=== PATIENT | female | born 2000 | race Caucasian/White ===

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

== ENCOUNTER 2019-07-03 11:26 | Emergency (ER) | payer OTHER ==
[~2019-07-03] VITALS: Ht 165.1 cm; Wt 68.8 kg
[2019-07-03] MEDS ORDERED: ALBUTEROL SULFATE 2.5 MG/3 ML ONE (12:13)
[2019-07-03] MEDS ORDERED: ONDANSETRON ODT 4 MG ONE (12:14)
[2019-07-03] MEDS ORDERED: MAALOX/HYOSCYAMINE/LIDOCAINE 45 ML BTL ONE (12:14)
[2019-07-03] MEDS ORDERED: FAMOTIDINE 20 MG TABLET ONE (12:14)
--- NOTE | 2019-07-03 12:18 | NUR ---
RT AND LAB AT [facility]. PT C/O ABDOMINAL PAIN SINCE FEBRUARY WITH NAUSEA, COUGH SINCE APRIL, WEAKNESS, AND TACTILE FEVERS AT HOME. PT UP DATED ON POC. WILL MEDICATE ORDERED. UA SENT TO THE LAB.
[2019-07-03 12:29] LABS: BASOPHILS # (AUTO) 0.07 x10^3/uL (0-0.3); BASOPHILS % (AUTO) 1 % (0-1); EOSINOPHILS # (AUTO) 0.39 x10^3/uL (0-0.8); EOSINOPHILS % (AUTO) 5 % (1-7); LYMPHOCYTES # (AUTO) 1.32 x10^3/uL (1-6.1); LYMPHOCYTES % (AUTO) 16 % (22-44); MD NO; MEAN CORPUSCULAR HEMOGLOBIN 29.6 pg (27.0-34.8); MEAN CORPUSCULAR HGB CONC 32.8 g/dL (32.4-35.8); MEAN CORPUSCULAR VOLUME 90.2 fL (80-100); MEAN PLATELET VOLUME 7.5 fL (7.4-10.4); MONOCYTES % (AUTO) 5 % (2-9); NEUTROPHILS # (AUTO) 6.06 x10^3/uL (1.8-8.0); NEUTROPHILS % (AUTO) 74 % (42-75); PLATELET COUNT 215 x10^3/uL (130-400); RED BLOOD COUNT 4.74 x10^6/uL (3.82-5.3); RED CELL DISTRIBUTION WIDTH 13.2 % (9.6-15.2)
[2019-07-03] MEDS ORDERED: ONDANSETRON ODT 4 MG PO ONE (12:30)
[2019-07-03] MEDS ORDERED: MAALOX/HYOSCYAMINE/LIDOCAINE 45 ML BTL PO ONE (12:30)
[2019-07-03] MEDS ORDERED: ALBUTEROL/IPRATROPIUM 2.5MG/0.5MG, 3 ML NPPB ONE (12:30)
[2019-07-03] MEDS ORDERED: FAMOTIDINE 20 MG TABLET PO ONE (12:30)
--- NOTE | 2019-07-03 12:30 | NUR ---
PT REPORTS SHE FEELS BETTER AFTER BREATHING TX. PT TO RAD.
[2019-07-03 12:35] LABS: CULTURE INDICATED? YES; MICROSCOPIC INDICATED
[2019-07-03 12:39] LABS: ALANINE AMINOTRANSFERASE 28 U/L (12-78); ALBUMIN 3.5 g/dL (3.4-5.0); ANION GAP 6 mmol/L (5-15); CALCIUM 8.6 mg/dL (8.5-10.1); CHLORIDE 107 mmol/L (98-107)
[2019-07-03 12:44] LABS: ALKALINE PHOSPHATASE 58 U/L (45-117); BILIRUBIN,TOTAL 0.8 mg/dL (0.2-1.0); TOTAL PROTEIN 6.9 g/dL (6.4-8.2)
[2019-07-03] MEDS ORDERED: CEFTRIAXONE 1,000 MG IM ONE (13:30)
[2019-07-03] MEDS ORDERED: CEFTRIAXONE 1,000 MG ONE (13:46)
[2019-07-03] MEDS ORDERED: LIDOCAINE-MPF 1%, 5ML ONE (13:46)
[2019-07-03 14:20] VITALS: BP 108/62
[2019-07-31] MEDS ORDERED: LIOT5TAB10 PO ×2 (17:06)
== END 2019-07-03 14:22 | disposition home or self-care (01) ==
LOC: ED 12:13
DX: K29.50 Unspecified chronic gastritis without bleeding (principal); G89.29 Other chronic pain; N10 Acute pyelonephritis; J20.8 Acute bronchitis due to other specified organisms; N30.00 Acute cystitis without hematuria
CPT/HCPCS: 36415; 71046; 80053; 81001; 83690; 84703; 85025; 87086; 93005; 94640; 96372; 99284; J0696; J7620; Q0162

== ENCOUNTER 2019-07-29 09:37 | Inpatient (IN) | payer OTHER ==
[~2019-07-29] VITALS: Ht 165.1 cm; Wt 70.0 kg
--- NOTE | 2019-07-29 09:37 | NUR ---
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
[2019-07-29 10:23] LABS: BASOPHILS # (AUTO) 0.07 x10^3/uL (0-0.3); BASOPHILS % (AUTO) 1 % (0-1); EOSINOPHILS % (AUTO) 10 % (1-7); LYMPHOCYTES # (AUTO) 1.23 x10^3/uL (1-6.1); LYMPHOCYTES % (AUTO) 17 % (22-44); MD NO; MEAN CORPUSCULAR HGB CONC 32.8 g/dL (32.4-35.8); MEAN CORPUSCULAR VOLUME 88.6 fL (80-100); MEAN PLATELET VOLUME 7.6 fL (7.4-10.4); MONOCYTES # (AUTO) 0.35 x10^3/uL (0-1.4); MONOCYTES % (AUTO) 5 % (2-9); NEUTROPHILS # (AUTO) 4.82 x10^3/uL (1.8-8.0); NEUTROPHILS % (AUTO) 67 % (42-75); PLATELET COUNT 269 x10^3/uL (130-400); RED BLOOD COUNT 4.78 x10^6/uL (3.82-5.3); RED CELL DISTRIBUTION WIDTH 13.3 % (9.6-15.2)
[2019-07-29 10:32] LABS: ALANINE AMINOTRANSFERASE 26 U/L (12-78); ALBUMIN 3.4 g/dL (3.4-5.0); ANION GAP 4 mmol/L (5-15); CALCIUM 8.2 mg/dL (8.5-10.1); CHLORIDE 106 mmol/L (98-107)
[2019-07-29 10:36] LABS: ALKALINE PHOSPHATASE 61 U/L (45-117); BILIRUBIN,TOTAL 0.4 mg/dL (0.2-1.0); TOTAL PROTEIN 6.9 g/dL (6.4-8.2)
[2019-07-29 10:56] LABS: MICROSCOPIC AUTO
[2019-07-29 11:00] LABS: FREE T4 (FREE THYROXINE) 0.99 ng/dL (0.76-1.46)
[2019-07-29 11:04] LABS: CULTURE INDICATED? YES
--- NOTE | 2019-07-29 11:04 | NUR ---
PT UP RIGHT ON GURNEY AWAKE & MOSTLY COMFORTABLE, RESPONDS APPROP TO STAFF, NAD & REFUSES PAIN MEDS FOR C/O ZAMORA, COMFORT MEASURES PROVIDED, FAMILY AT BS, CALL LIGHT WITHIN REACH.
[2019-07-29 11:05] LABS: AMPHETAMINE SCREEN, URINE Negative (Negative); BARBITURATE SCREEN, URINE Negative (Negative); BENZODIAZEPINE SCREEN, URINE Negative (Negative); CANNABINOID SCREEN, URINE Positive (Negative); COCAINE SCREEN, URINE Negative (Negative); METHADONE SCREEN, URINE Negative (Negative); OPIATE SCREEN, URINE Negative (Negative)
[2019-07-29] MEDS ORDERED: CEFTRIAXONE PMX 1GM/50ML 50 ML ONE (11:20)
[2019-07-29] MEDS ORDERED: CEFTRIAXONE PMX 1GM/50ML 50 ML IV ONE (11:30)
--- NOTE | 2019-07-29 11:58 | NUR ---
PT REMAINS UPRIGHT ON GURNEY AWAKE & COMFORTABLE, RESPONDS APPROP TO STAFF, NAD, COMFORT MEASURES PROVIDED, FAMILY AT BS, CALL LIGHT WITHIN REACH.
[2019-07-29] MEDS ORDERED: ACETAMINOPHEN 325 MG TABLET PO PRN (12:30)
[2019-07-29] MEDS ORDERED: GABAPENTIN 300 MG CAPSULE PO PRN (12:30)
[2019-07-29] MEDS ORDERED: KETOROLAC 30 MG/1 ML IV PRN (12:30)
[2019-07-29] MEDS ORDERED: hydrALAzine 20 MG/ML, 1ML IVPush PRN (12:30)
[2019-07-29] MEDS ORDERED: ONDANSETRON ODT 4 MG PO PRN (12:30)
[2019-07-29] MEDS ORDERED: BACLOFEN 10 MG TABLET PO PRN (12:30)
[2019-07-29] MEDS ORDERED: SODIUM CHLORIDE 0.9% 1,000ML IVBOLUS ONE (12:30)
[2019-07-29] MEDS ORDERED: KETOROLAC 30 MG/1 ML IM PRN (12:30)
[2019-07-29] MEDS ORDERED: IBUPROFEN 600 MG TABLET PO PRN (12:30)
[2019-07-29] MEDS ORDERED: ONDANSETRON 2MG/ML, 2ML IVPush PRN (12:30)
[2019-07-29] MEDS ORDERED: SUMATRIPTAN 25 MG TABLET PO PRN (12:30)
--- NOTE | 2019-07-29 12:45 | NUR ---
BREAK NOTE FOR RN: PER PRIMARY RN ATTEMPT X1 TO CALL FOR REPORT, WHICH WAS REFUSED. THROUGHPUT RN AWARE. FAMILY AT BEDSIDE. NAD NOTED AT THIS TIME.
--- NOTE | 2019-07-29 12:55 | NUR ---
BREAK NOTE: SECOND ATTEMPT FOR REPORT.
[2019-07-29 13:44] VITALS: BP 101/60
[2019-07-29 14:45] VITALS: BP 89/48
[2019-07-29] MEDS: NS + 20MEQ KCL 1,000 ML IV SCH (15:44)
[2019-07-29 15:55] VITALS: BP 101/60
[2019-07-29 16:56] VITALS: BP 108/66
[2019-07-29] MEDS: BUTALB/APAP/CAFFEINE 50MG/325MG/40MG PO PRN ×2 (17:00→22:16)
[2019-07-29] MEDS: ENOXAPARIN 40 MG/0.4 ML SQ SCH (18:00)
[2019-07-29 19:19] VITALS: BP 97/57
[2019-07-29 22:19] VITALS: BP 110/70
[2019-07-30] MEDS ORDERED: LEVETIRACETAM 1,000 MG in SODIUM CHLORIDE 0.9% 100 ML IV ONE ×2 (01:30→09:00)
[2019-07-30 01:50] VITALS: BP 96/60
[2019-07-30] MEDS: NS + 20MEQ KCL 1,000 ML IV SCH ×3 (02:09→20:23)
[2019-07-30] MEDS: BUTALB/APAP/CAFFEINE 50MG/325MG/40MG PO PRN (02:30)
[2019-07-30 06:37] LABS: ANION GAP 5 mmol/L (5-15); CALCIUM 8.1 mg/dL (8.5-10.1); CHLORIDE 110 mmol/L (98-107); CREATININE 0.63 mg/dL (0.55-1.02)
[2019-07-30 06:45] LABS: BASOPHILS # (AUTO) 0.03 x10^3/uL (0-0.3); BASOPHILS % (AUTO) 1 % (0-1); EOSINOPHILS # (AUTO) 0.42 x10^3/uL (0-0.8); EOSINOPHILS % (AUTO) 7 % (1-7); LYMPHOCYTES # (AUTO) 1.59 x10^3/uL (1-6.1); LYMPHOCYTES % (AUTO) 27 % (22-44); MD NO; MEAN CORPUSCULAR VOLUME 87.9 fL (80-100); MEAN PLATELET VOLUME 7.5 fL (7.4-10.4); MONOCYTES # (AUTO) 0.41 x10^3/uL (0-1.4); MONOCYTES % (AUTO) 7 % (2-9); NEUTROPHILS # (AUTO) 3.45 x10^3/uL (1.8-8.0); NEUTROPHILS % (AUTO) 59 % (42-75); PLATELET COUNT 200 x10^3/uL (130-400); RED BLOOD COUNT 4.09 x10^6/uL (3.82-5.3); RED CELL DISTRIBUTION WIDTH 13.1 % (9.6-15.2)
[2019-07-30 08:56] VITALS: BP 99/62
[2019-07-30 12:18] VITALS: BP 100/64
[2019-07-30] MEDS ORDERED: LORazepam 2 MG/ML, 1ML IVPush PRN (12:30)
[2019-07-30] MEDS: CEFTRIAXONE PMX 1GM/50ML 50 ML IV SCH (13:53)
[2019-07-30] MEDS ORDERED: GADOTERATE 7.5 MMOL/15 ML SYR ONE (17:26)
[2019-07-30] MEDS: ENOXAPARIN 40 MG/0.4 ML SQ SCH (17:40)
[2019-07-30 20:12] VITALS: BP 111/61
[2019-07-30 20:18] VITALS: BP 114/76
[2019-07-30 20:19] VITALS: BP 114/77
[2019-07-31 00:43] VITALS: BP 96/54
[2019-07-31 06:01] LABS: BASOPHILS # (AUTO) 0.03 x10^3/uL (0-0.3); BASOPHILS % (AUTO) 1 % (0-1); EOSINOPHILS # (AUTO) 0.43 x10^3/uL (0-0.8); EOSINOPHILS % (AUTO) 9 % (1-7); LYMPHOCYTES # (AUTO) 1.94 x10^3/uL (1-6.1); LYMPHOCYTES % (AUTO) 41 % (22-44); MD NO; MEAN CORPUSCULAR VOLUME 87.8 fL (80-100); MONOCYTES # (AUTO) 0.33 x10^3/uL (0-1.4); MONOCYTES % (AUTO) 7 % (2-9); NEUTROPHILS # (AUTO) 1.95 x10^3/uL (1.8-8.0); NEUTROPHILS % (AUTO) 42 % (42-75); PLATELET COUNT 204 x10^3/uL (130-400); RED BLOOD COUNT 4.22 x10^6/uL (3.82-5.3); RED CELL DISTRIBUTION WIDTH 13.2 % (9.6-15.2)
[2019-07-31 06:07] LABS: ANION GAP 5 mmol/L (5-15); CALCIUM 8.5 mg/dL (8.5-10.1); CHLORIDE 112 mmol/L (98-107)
[2019-07-31] MEDS: NS + 20MEQ KCL 1,000 ML IV SCH (06:09)
[2019-07-31 06:10] LABS: CREATININE 0.69 mg/dL (0.55-1.02)
[2019-07-31] MEDS ORDERED: LEVETIRACETAM 500 MG TABLET PO SCH (09:30)
[2019-07-31] MEDS ORDERED: LIOTHYRONINE 5 MCG TABLET PO SCH (11:00)
[2019-07-31] MEDS: CEFTRIAXONE PMX 1GM/50ML 50 ML IV SCH (14:16)
[2019-07-31] MEDS ORDERED: SODIUM CHLORIDE 0.9% 1,000 ML IV SCH (16:00)
[2019-07-31] MEDS: ENOXAPARIN 40 MG/0.4 ML SQ SCH (17:03)
[2019-07-31] MEDS ORDERED: CEFD300C37 PO (17:06)
[2019-07-31] MEDS ORDERED: LIOT5TAB10 PO (17:06)
[2019-07-31] MEDS ORDERED: HYDR20TA PO (17:06)
[2019-07-31] MEDS ORDERED: LEVE500T53 PO (17:06)
[2019-07-31] MEDS ORDERED: HYDR10TA PO (17:06)
[2019-07-31] MEDS ORDERED: FAMO20TA7 PO (17:06)
[2019-07-31 17:34] VITALS: BP 103/69
[2019-07-31] MEDS ORDERED: IBUPROFEN 600 MG TABLET PO PRN (20:00)
[2019-07-31] MEDS ORDERED: HYDROCORTISONE 10 MG TABLET PO SCH (21:00)
[2019-07-31] MEDS ORDERED: FAMOTIDINE 20 MG TABLET PO SCH (21:00)
[2019-08-01] MEDS ORDERED: HYDROCORTISONE 20 MG TABLET PO SCH (07:30)
[2019-08-01] MEDS ORDERED: CEFTRIAXONE PMX 1GM/50ML 50 ML IV SCH (14:00)
[2019-08-03] MEDS ORDERED: NS + 20MEQ KCL 1,000 ML IV SCH (15:32)
[2019-08-03] MEDS ORDERED: ACETAMINOPHEN 325 MG TABLET PO PRN (16:00)
[2019-08-03] MEDS ORDERED: MORPHINE SULFATE 4 MG/ML, 1ML IVPush PRN (16:00)
[2019-08-03] MEDS ORDERED: hydrALAzine 20 MG/ML, 1ML IVPush PRN (16:00)
[2019-08-03] MEDS ORDERED: ONDANSETRON ODT 4 MG PO PRN (16:00)
[2019-08-03] MEDS ORDERED: ONDANSETRON 2MG/ML, 2ML IVPush PRN (16:00)
[2019-08-03] MEDS ORDERED: KETOROLAC 30 MG/1 ML IM PRN (16:00)
[2019-08-03] MEDS ORDERED: KETOROLAC 30 MG/1 ML IV PRN (16:00)
[2019-08-03] MEDS ORDERED: IBUPROFEN 600 MG TABLET PO PRN (16:00)
[2019-08-03] MEDS ORDERED: LEVETIRACETAM 500 MG TABLET PO SCH (21:00)
== END 2019-07-31 20:00 | disposition home or self-care (01) | DRG 71 ==
LOC: ED 11:08 → EDIP 12:26 → 4EST 13:19
PROVIDERS: ADMIT Hospitalist; ATTEND Hospitalist
DX: G93.89 Other specified disorders of brain (principal); E27.40 Unspecified adrenocortical insufficiency; N39.0 Urinary tract infection, site not specified; G40.909 Epilepsy, unspecified, not intractable, without status epilepticus; B96.20 Unspecified Escherichia coli [E. coli] as the cause of diseases classified elsewhere; E03.9 Hypothyroidism, unspecified; F12.90 Cannabis use, unspecified, uncomplicated; F41.9 Anxiety disorder, unspecified; G89.29 Other chronic pain; R32 Unspecified urinary incontinence; Z87.820 Personal history of traumatic brain injury; G43.909 Migraine, unspecified, not intractable, without status migrainosus; K29.50 Unspecified chronic gastritis without bleeding; Z79.899 Other long term (current) drug therapy
CPT/HCPCS: 36415; 70450; 70544; 70553; 80048; 80053; 80307; 81001; 82533; 83735; 84439; 84443; 84481; 84703; 85025; 87077; 87086; 87186; 93005; 93306; 95819; 96365; G0378; J0696; J3480; Q0162; A9575; J7030

== ENCOUNTER 2019-08-03 12:40 | Observation (INO) | payer OTHER ==
[~2019-08-03] VITALS: Ht 165.1 cm; Wt 73.4 kg
[~2019-08-03 12:40] MED LIST: CEFD300C37 PO; FAMO20TA7 PO; HYDR10TA PO; HYDR20TA PO; LEVE500T53 PO; LIOT5TAB10 PO
[2019-08-03 13:20] LABS: BASOPHILS # (AUTO) 0.03 x10^3/uL (0-0.3); BASOPHILS % (AUTO) 0 % (0-1); EOSINOPHILS # (AUTO) 0.05 x10^3/uL (0-0.8); EOSINOPHILS % (AUTO) 1 % (1-7); LYMPHOCYTES # (AUTO) 1.16 x10^3/uL (1-6.1); LYMPHOCYTES % (AUTO) 14 % (22-44); MD NO; MEAN PLATELET VOLUME 7.7 fL (7.4-10.4); MONOCYTES # (AUTO) 0.31 x10^3/uL (0-1.4); MONOCYTES % (AUTO) 4 % (2-9); NEUTROPHILS # (AUTO) 6.53 x10^3/uL (1.8-8.0); NEUTROPHILS % (AUTO) 81 % (42-75); PLATELET COUNT 342 x10^3/uL (130-400); RED BLOOD COUNT 5.48 x10^6/uL (3.82-5.3); RED CELL DISTRIBUTION WIDTH 13.4 % (9.6-15.2)
[2019-08-03 13:21] LABS: ALBUMIN 4.2 g/dL (3.4-5.0); ANION GAP 6 mmol/L (5-15); CALCIUM 9.1 mg/dL (8.5-10.1); CHLORIDE 105 mmol/L (98-107); CREATININE 0.96 mg/dL (0.55-1.02)
--- NOTE | 2019-08-03 13:53 | NUR ---
nax1
--- NOTE | 2019-08-03 13:54 | NUR ---
pt ambulates well to ED room from lobby.
--- NOTE | 2019-08-03 14:08 | NUR ---
first contact with pt. pt c/o rash behind neck and back, swollen lips. recently started new medications. recently admitted for sz and uti. still having uti s/s (pain, burning) after completed abx. pt's aox4. resps even and unlabored. bp/spo2 monitors in place. call light within reach.
[2019-08-03] MEDS ORDERED: DIPHENHYDRAMINE 25 MG CAPSULE ONE (14:19)
--- NOTE | 2019-08-03 14:20 | NUR ---
pt medicated per emar. pt tolerated well.
[2019-08-03 14:22] LABS: MICROSCOPIC INDICATED
[2019-08-03] MEDS ORDERED: DIPHENHYDRAMINE 25 MG CAPSULE PO ONE (14:30)
[2019-08-03 14:52] LABS: HCG UR SG 1.009 (1.003-1.030)
[2019-08-03 15:00] LABS: CULTURE INDICATED? YES
[2019-08-03] MEDS ORDERED: EPINEPHRINE 1 MG/ML, 1ML SQ ONE (15:30)
[2019-08-03] MEDS ORDERED: DIPHENHYDRAMINE 50 MG CAPSULE PO PRN (15:30)
[2019-08-03] MEDS ORDERED: methylPREDNISolone SOD SUCC 40 MG/ML IV ONE (15:30)
[2019-08-03] MEDS ORDERED: CALCIUM CARBONATE 500 MG TAB.CHEW PO PRN (15:30)
[2019-08-03] MEDS ORDERED: methylPREDNISolone SOD SUCC 40 MG/ML ONE (15:36)
[2019-08-03] MEDS ORDERED: EPINEPHRINE 1 MG/ML, 1ML ONE (15:36)
--- NOTE | 2019-08-03 15:52 | NUR ---
pt medicated per emar. pt tolerated well.
[2019-08-03] MEDS ORDERED: ACETAMINOPHEN 325 MG TABLET PO PRN ×2 (16:00)
[2019-08-03] MEDS ORDERED: MORPHINE SULFATE 4 MG/ML, 1ML IVPush PRN (16:00)
[2019-08-03] MEDS ORDERED: ONDANSETRON 2MG/ML, 2ML IVPush PRN ×2 (16:00)
[2019-08-03] MEDS ORDERED: morphine SULFATE 10 MG/ML, 1ML IVPush PRN (16:00)
[2019-08-03] MEDS ORDERED: hydrALAzine 20 MG/ML, 1ML IVPush PRN ×2 (16:00)
[2019-08-03] MEDS ORDERED: KETOROLAC 30 MG/1 ML IV PRN ×2 (16:00)
[2019-08-03] MEDS ORDERED: IBUPROFEN 600 MG TABLET PO PRN ×2 (16:00)
[2019-08-03] MEDS ORDERED: PROMETHAZINE 25 MG/ML, 1ML IM PRN (16:00)
[2019-08-03] MEDS ORDERED: ONDANSETRON ODT 4 MG PO PRN ×2 (16:00)
[2019-08-03] MEDS ORDERED: OXYcodone IR 5MG TABLET PO PRN (16:00)
--- NOTE | 2019-08-03 16:14 | NUR ---
REPORT GIVEN TO STONE PLASCENCIA. ALL QUESTIONS ANSWERED.
[2019-08-03] MEDS: NS + 20MEQ KCL 1,000 ML IV SCH (18:46)
[2019-08-03 18:57] VITALS: BP 99/61
[2019-08-03] MEDS: LEVETIRACETAM 500 MG TABLET PO SCH (21:39)
[2019-08-03] MEDS: methylPREDNISolone SOD SUCC 40 MG/ML IV SCH (21:40)
[2019-08-04 00:56] VITALS: BP 107/65
[2019-08-04] MEDS: NS + 20MEQ KCL 1,000 ML IV SCH ×2 (01:51→11:51)
[2019-08-04] MEDS: methylPREDNISolone SOD SUCC 40 MG/ML IV SCH (04:00)
[2019-08-04] MEDS ORDERED: LEVOTHYROXINE 100 MCG TABLET PO SCH (06:00)
[2019-08-04 08:15] VITALS: BP 119/88
[2019-08-04] MEDS: LEVETIRACETAM 500 MG TABLET PO SCH ×3 (09:00→20:26)
[2019-08-04] MEDS: HYDROCORTISONE 20 MG TABLET PO SCH (10:59)
[2019-08-04] MEDS ORDERED: LEVE500T53 PO (11:21)
[2019-08-04] MEDS ORDERED: EPINEPHRINE 1 MG/ML, 1ML SQ PRN (11:30)
[2019-08-04 12:50] VITALS: BP 107/68
[2019-08-04 19:27] VITALS: BP 102/62
[2019-08-04] MEDS ORDERED: HYDROCORTISONE 10 MG TABLET PO SCH (21:00)
[2019-08-05 00:52] VITALS: BP 116/68
[2019-08-05 05:34] LABS: ALBUMIN 3.5 g/dL (3.4-5.0); ANION GAP 5 mmol/L (5-15); CALCIUM 8.6 mg/dL (8.5-10.1); CHLORIDE 109 mmol/L (98-107)
[2019-08-05 05:35] LABS: CREATININE 0.74 mg/dL (0.55-1.02)
[2019-08-05 05:40] LABS: BASOPHILS # (AUTO) 0.02 x10^3/uL (0-0.3); BASOPHILS % (AUTO) 0 % (0-1); EOSINOPHILS # (AUTO) 0.09 x10^3/uL (0-0.8); EOSINOPHILS % (AUTO) 1 % (1-7); LYMPHOCYTES # (AUTO) 2.51 x10^3/uL (1-6.1); LYMPHOCYTES % (AUTO) 35 % (22-44); MD NO; MEAN CORPUSCULAR HEMOGLOBIN 29.2 pg (27.0-34.8); MEAN CORPUSCULAR HGB CONC 33.3 g/dL (32.4-35.8); MEAN CORPUSCULAR VOLUME 87.6 fL (80-100); MEAN PLATELET VOLUME 8.2 fL (7.4-10.4); MONOCYTES # (AUTO) 0.44 x10^3/uL (0-1.4); MONOCYTES % (AUTO) 6 % (2-9); NEUTROPHILS # (AUTO) 4.14 x10^3/uL (1.8-8.0); NEUTROPHILS % (AUTO) 58 % (42-75); PLATELET COUNT 262 x10^3/uL (130-400); RED BLOOD COUNT 4.88 x10^6/uL (3.82-5.3)
[2019-08-05] MEDS ORDERED: LEVOTHYROXINE 50 MCG TABLET PO SCH (06:00)
[2019-08-05 07:14] VITALS: BP 106/71
[2019-08-05] MEDS: HYDROCORTISONE 20 MG TABLET PO SCH (08:23)
[2019-08-05] MEDS: LEVETIRACETAM 500 MG TABLET PO SCH (08:23)
[2019-08-05 12:25] VITALS: BP 104/68
[2019-08-05] MEDS ORDERED: LEVO25TA4 PO (13:05)
[2019-08-05] MEDS ORDERED: EPIN0.3P3 SC (16:13)
== END 2019-08-05 16:18 | disposition home or self-care (01) ==
LOC: ED 14:36 → EDIP 15:13 → INTOOBSV 15:13 → 3N 16:39 → DCLOUNGE 08-05 16:09
PROVIDERS: ADMIT Internal Medicine; ATTEND Internal Medicine
DX: R21 Rash and other nonspecific skin eruption (principal); L25.8 Unspecified contact dermatitis due to other agents; T38.1X5A Adverse effect of thyroid hormones and substitutes, initial encounter; G40.909 Epilepsy, unspecified, not intractable, without status epilepticus; E03.9 Hypothyroidism, unspecified; G89.29 Other chronic pain; R10.9 Unspecified abdominal pain; Y92.89 Other specified places as the place of occurrence of the external cause
CPT/HCPCS: 36415; 80048; 81001; 81025; 82024; 82040; 84703; 85025; 87086; 96372; 96374; 96376; 99284; G0378; J0171; J2920; J3480; Q0163; 90472

== ENCOUNTER → 2019-09-22 | Outpatient (CLI) | payer OTHER ==
[~2019-09-22] MED LIST changes: +EPIN0.3P3 SC; +LEVO25TA4 PO
== END | disposition home or self-care (01) ==
LOC: CFH 09:09
PROVIDERS: ATTEND Obstetrics & Gynecology
DX: N63.24 Unspecified lump in the left breast, lower inner quadrant (principal); N64.4 Mastodynia
CPT/HCPCS: 76642

== ENCOUNTER 2019-10-22 02:16 | Emergency (ER) | payer OTHER ==
[~2019-10-22] VITALS: Ht 172.7 cm; Wt 79.0 kg
[2019-10-22] MEDS ORDERED: LORazepam 1MG TABLET PO ONE (03:00)
[2019-10-22] MEDS ORDERED: LORazepam 1MG TABLET ONE (03:08)
--- NOTE | 2019-10-22 03:12 | NUR ---
INITIAL CONTACT WITH PT. ASSESSMENT DONE. PT HAS BEEN SEEN BY PROVIDER AND LABS HAVE BEEN DRAWN.
[2019-10-22 03:15] LABS: BASOPHILS # (AUTO) 0.04 x10^3/uL (0-0.3); BASOPHILS % (AUTO) 0 % (0-1); EOSINOPHILS # (AUTO) 0.14 x10^3/uL (0-0.8); EOSINOPHILS % (AUTO) 2 % (1-7); LYMPHOCYTES % (AUTO) 29 % (22-44); MD NO; MEAN CORPUSCULAR HEMOGLOBIN 29.5 pg (27.0-34.8); MEAN CORPUSCULAR HGB CONC 33.4 g/dL (32.4-35.8); MEAN CORPUSCULAR VOLUME 88.2 fL (80-100); MEAN PLATELET VOLUME 7.6 fL (7.4-10.4); MONOCYTES # (AUTO) 0.57 x10^3/uL (0-1.4); MONOCYTES % (AUTO) 7 % (2-9); NEUTROPHILS # (AUTO) 4.99 x10^3/uL (1.8-8.0); NEUTROPHILS % (AUTO) 62 % (42-75); PLATELET COUNT 270 x10^3/uL (130-400); RED CELL DISTRIBUTION WIDTH 13.8 % (9.6-15.2)
[2019-10-22 03:24] LABS: ALANINE AMINOTRANSFERASE 26 U/L (12-78); ALBUMIN 3.4 g/dL (3.4-5.0); ANION GAP 7 mmol/L (5-15); CHLORIDE 107 mmol/L (98-107)
[2019-10-22 03:30] LABS: ALKALINE PHOSPHATASE 52 U/L (45-117); BILIRUBIN,TOTAL 0.3 mg/dL (0.2-1.0); CREATININE 0.87 mg/dL (0.55-1.02); TOTAL PROTEIN 6.8 g/dL (6.4-8.2)
--- NOTE | 2019-10-22 04:08 | NUR ---
Sonal lofton in [facility] - 10/22/19 at 0409 by JARAD PT DC'D HOME WITH UNDERSTANDING OF INSTRUCTIONS.
[2019-10-22 04:10] VITALS: BP 108/51
--- NOTE | 2019-10-22 04:10 | NUR ---
PT DC'D HOME WITH UNDERSTANDING OF INSTRUCTIONS. PT HONEY WITHOUT DIFFICULTY.
== END 2019-10-22 04:12 | disposition home or self-care (01) ==
LOC: ED 04:02
DX: F41.1 Generalized anxiety disorder (principal); R25.1 Tremor, unspecified
CPT/HCPCS: 36415; 80053; 82607; 83735; 84443; 84703; 85025; 99283

== ENCOUNTER 2019-12-03 18:22 | Emergency (ER) | payer OTHER ==
[~2019-12-03] VITALS: Ht 165.1 cm; Wt 77.0 kg
[2019-12-03] MEDS ORDERED: HYDR-3059 PO (19:04)
--- NOTE | 2019-12-03 19:06 | NUR ---
PT AMBULATED TO RESTROOM WITH STEADY GAIT TO PROVIDE URINE SAMPLE. UA COLLECTED AND TAKEN TO LAB. PT RESTING ON GURNEY WATCHING TV. AWAITING FURTHER ORDERS AT THIS TIME.
[2019-12-03 19:28] LABS: MICROSCOPIC AUTO
--- NOTE | 2019-12-03 19:34 | NUR ---
AT BEDSIDE FOR ASSESSMENT.
[2019-12-03 19:46] LABS: CULTURE INDICATED? NO
--- NOTE | 2019-12-03 19:59 | NUR ---
PIV PLACED, LABS DRAWN. PT RESTING COMFORTABLY ON GURNEY. MOM AT BEDSIDE.
[2019-12-03] MEDS ORDERED: SODIUM CHLORIDE FLUSH 10ML SYR IVF ONE (20:00)
[2019-12-03 20:29] LABS: ALBUMIN 3.6 g/dL (3.4-5.0); ANION GAP 6 mmol/L (5-15); CALCIUM 8.7 mg/dL (8.5-10.1); CHLORIDE 110 mmol/L (98-107)
[2019-12-03 20:32] LABS: BASOPHILS # (AUTO) 0.03 x10^3/uL (0-0.3); BASOPHILS % (AUTO) 1 % (0-1); EOSINOPHILS % (AUTO) 2 % (1-7); LYMPHOCYTES # (AUTO) 2.04 x10^3/uL (1-6.1); LYMPHOCYTES % (AUTO) 32 % (22-44); MD NO; MEAN CORPUSCULAR HGB CONC 33.5 g/dL (32.4-35.8); MEAN CORPUSCULAR VOLUME 89.7 fL (80-100); MEAN PLATELET VOLUME 8.3 fL (7.4-10.4); MONOCYTES # (AUTO) 0.42 x10^3/uL (0-1.4); MONOCYTES % (AUTO) 7 % (2-9); NEUTROPHILS # (AUTO) 3.79 x10^3/uL (1.8-8.0); NEUTROPHILS % (AUTO) 59 % (42-75); PLATELET COUNT 255 x10^3/uL (130-400); RED BLOOD COUNT 4.85 x10^6/uL (3.82-5.3); RED CELL DISTRIBUTION WIDTH 13.5 % (9.6-15.2)
--- NOTE | 2019-12-03 20:32 | NUR ---
CT PENDING BETA.
[2019-12-03 20:35] LABS: ALANINE AMINOTRANSFERASE 24 U/L (12-78); ALKALINE PHOSPHATASE 61 U/L (45-117); BILIRUBIN,TOTAL 0.4 mg/dL (0.2-1.0); CREATININE 0.78 mg/dL (0.55-1.02); TOTAL PROTEIN 7.3 g/dL (6.4-8.2)
--- NOTE | 2019-12-03 20:49 | NUR ---
PT GOING TO CT
[2019-12-03] MEDS ORDERED: HYDROCORTISONE 10 MG TABLET PO ONE (21:00)
[2019-12-03] MEDS ORDERED: OMNIPAQUE 350 MG/ML, 100ML BOTTLE ONE (21:00)
--- NOTE | 2019-12-03 21:03 | NUR ---
PT REQUESTED HOME MED OF MD BLADIMIR NOTIFIED. MED RECEIVED FROM PHARMACY. 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 PT RESTING ON GURNEY. MOM AT BEDSIDE.
[2019-12-03 21:04] VITALS: BP 105/54
--- NOTE | 2019-12-03 21:14 | NUR ---
ALL RESULTS ARE BACK AT THIS TIME. CHART UP FOR RECHECK.
--- NOTE | 2019-12-03 21:16 | NUR ---
MD AT BEDSIDE TO UPDATE PT ON POC.
== END 2019-12-03 21:44 | disposition home or self-care (01) ==
LOC: ED 21:09
DX: N92.4 Excessive bleeding in the premenopausal period (principal); R10.11 Right upper quadrant pain
CPT/HCPCS: 36415; 74177; 80053; 81001; 83690; 84703; 85025; 99285; Q9967

== ENCOUNTER 2020-01-27 12:09 | Emergency (ER) | payer OTHER ==
[~2020-01-27] VITALS: Ht 165.1 cm; Wt 89.7 kg
[~2020-01-27 12:09] MED LIST changes: +HYDR-3590 PO
--- NOTE | 2020-01-27 12:58 | NUR ---
PT AMBULATED BACK TO ROOM WITHOUT DIFFICULTY.
--- NOTE | 2020-01-27 13:04 | NUR ---
JT NOVAK AT .
--- NOTE | 2020-01-27 13:16 | NUR ---
PT AMBULATED TO BR; INSTRUCTED ON CLEAN CATCH URINE SAMPLE.
[2020-01-27] MEDS ORDERED: PROCHLORPERAZINE 5 MG/ML, 2ML IVPush ONE (13:30)
[2020-01-27] MEDS ORDERED: DIPHENHYDRAMINE 50 MG/ML, 1ML IVPush ONE (13:30)
[2020-01-27] MEDS ORDERED: KETOROLAC 30 MG/1 ML IVPush ONE (13:30)
[2020-01-27] MEDS ORDERED: SODIUM CHLORIDE 0.9% 1,000ML IVBOLUS ONE (13:30)
[2020-01-27] MEDS ORDERED: SODIUM CHLORIDE FLUSH 10ML SYR IVF ONE (13:30)
--- NOTE | 2020-01-27 13:36 | NUR ---
IV INSERTED. ERP WAS IN TO REVIEW POC WITH PT. REPORTED TO KRISTEN PLASCENCIA. SPO2 WAS 88% ON RA. PT PLACED ON 2L O2 NC. PT STATES THERE WAS SOMEONE AT HER WORK ([employer]) WHOSE FAMILY WAS COVID+, BUT "HE HASN'T WORKED IN 2 WEEKS".
[2020-01-27] MEDS ORDERED: DIPHENHYDRAMINE 50 MG/ML, 1ML ONE (13:38)
[2020-01-27] MEDS ORDERED: PROCHLORPERAZINE 5 MG/ML, 2ML ONE (13:38)
[2020-01-27] MEDS ORDERED: KETOROLAC 30 MG/1 ML ONE (13:39)
[2020-01-27 13:40] LABS: BASOPHILS # (AUTO) 0.02 x10^3/uL (0-0.3); BASOPHILS % (AUTO) 0 % (0-1); EOSINOPHILS # (AUTO) 0.04 x10^3/uL (0-0.8); EOSINOPHILS % (AUTO) 1 % (1-7); LYMPHOCYTES # (AUTO) 1.22 x10^3/uL (1-6.1); LYMPHOCYTES % (AUTO) 30 % (22-44); MD NO; MEAN CORPUSCULAR HEMOGLOBIN 29.8 pg (27.0-34.8); MEAN CORPUSCULAR HGB CONC 33.6 g/dL (32.4-35.8); MEAN CORPUSCULAR VOLUME 88.6 fL (80-100); MONOCYTES # (AUTO) 0.28 x10^3/uL (0-1.4); MONOCYTES % (AUTO) 7 % (2-9); NEUTROPHILS # (AUTO) 2.52 x10^3/uL (1.8-8.0); NEUTROPHILS % (AUTO) 62 % (42-75); PLATELET COUNT 210 x10^3/uL (130-400); RED BLOOD COUNT 4.75 x10^6/uL (3.82-5.3); RED CELL DISTRIBUTION WIDTH 12.9 % (9.6-15.2)
[2020-01-27 13:45] LABS: MICROSCOPIC NOT IND
--- NOTE | 2020-01-27 13:46 | NUR ---
PT MEDICATED PER EMAR. NS INFUSING AT THIS TIME. US AT BEDSIDE AT THIS TIME.
[2020-01-27 13:52] LABS: ALBUMIN 3.5 g/dL (3.4-5.0); ANION GAP 3 mmol/L (5-15); CALCIUM 8.8 mg/dL (8.5-10.1); CHLORIDE 112 mmol/L (98-107)
[2020-01-27 13:59] LABS: ALANINE AMINOTRANSFERASE 27 U/L (12-78); ALKALINE PHOSPHATASE 57 U/L (45-117); BILIRUBIN,TOTAL 0.6 mg/dL (0.2-1.0); CREATININE 0.81 mg/dL (0.55-1.02)
[2020-01-27 14:25] VITALS: BP 95/59
--- NOTE | 2020-01-27 14:29 | NUR ---
PT STATES SHE FEELS BETTER AFTER MEDS AND FEELS READY TO BE DISCHARGED. ENCOURAGED PLENTY OF FLUIDS. D/C INSTRUCTIONS, MEDS & F/U APPT RV'WD WITH PT, SHE VERBALIZES UNDERSTANDING. RX GIVEN X1. AMBULATED OUT OF ED WITH MOTHER, WHO WILL TAKE HER HOME. Addendum: 01/27/20 at 1433 by OTTO INSTRUCTED PT TO RETURN TO ED FOR ANY WORSENING SYMPTOMS.
== END 2020-01-27 14:33 | disposition home or self-care (01) ==
LOC: ED 14:19
DX: G44.219 Episodic tension-type headache, not intractable (principal); Z20.828 Contact with and (suspected) exposure to other viral communicable diseases; B34.9 Viral infection, unspecified; R11.0 Nausea; R39.15 Urgency of urination; R10.9 Unspecified abdominal pain; Z88.8 Allergy status to other drugs, medicaments and biological substances
CPT/HCPCS: 36415; 71045; 76770; 80053; 81003; 84703; 85025; 87635; 96374; 96375; 99285; J0780; J1200; J1885; J7030

== ENCOUNTER 2020-01-27 22:10 | Emergency (ER) | payer OTHER ==
[~2020-01-27] VITALS: Ht 165.1 cm; Wt 80.0 kg
[2020-01-27 22:22] VITALS: BP 115/72
[2020-01-27] MEDS ORDERED: LORazepam 1MG TABLET ONE (23:44)
--- NOTE | 2020-01-27 23:53 | NUR ---
REPORT OF PT FROM THAIS SALAS AND ASSUMING CARE OF PT AT THIS TIME.
[2020-01-28] MEDS ORDERED: LORazepam 1MG TABLET PO ONE ×2 (00:30)
== END 2020-01-28 01:14 | disposition home or self-care (01) ==
LOC: ED 23:46
DX: F41.1 Generalized anxiety disorder (principal); R45.1 Restlessness and agitation
CPT/HCPCS: 99283

== ENCOUNTER 2020-01-28 15:49 | Emergency (ER) | payer OTHER ==
[~2020-01-28] VITALS: Ht 165.1 cm; Wt 77.0 kg
--- NOTE | 2020-01-28 16:16 | NUR ---
patient arrives with mother in law with jittery, anxiety, agitation. Patient seen here yesterday morning for a migraine, then returned last night for anxiety, and now here today for continued anxiety. states she was here given compazine and states that she believes that's the source.
[2020-01-28] MEDS ORDERED: LORazepam 1MG TABLET PO ONE (16:30)
[2020-01-28] MEDS ORDERED: LORazepam 1MG TABLET ONE (16:33)
[2020-01-28 16:44] VITALS: BP 128/78
--- NOTE | 2020-01-28 16:50 | NUR ---
Patient/Caregiver given discharge instructions and they have confirmed that they understand the instructions. Patient ambulatory with steady gait.
== END 2020-01-28 16:51 | disposition home or self-care (01) ==
LOC: ED 16:44
DX: F41.1 Generalized anxiety disorder (principal); T43.3X1A Poisoning by phenothiazine antipsychotics and neuroleptics, accidental (unintentional), initial encounter; G43.909 Migraine, unspecified, not intractable, without status migrainosus; Y92.89 Other specified places as the place of occurrence of the external cause
CPT/HCPCS: 99283

== ENCOUNTER 2020-02-22 15:33 | Emergency (ER) | payer OTHER ==
[~2020-02-22] VITALS: Ht 165.1 cm; Wt 77.2 kg
--- NOTE | 2020-02-22 16:02 | NUR ---
PT UP TO RESTROOM, URINE SAMPLE COLLECTED AND SENT. PT ATTACHED TO MONITORS AND DRESSED IN GOWN. WARM BLANKETS PROVIDED. ERP AT BEDSIDE. CALL LIGHT IN REACH.
[2020-02-22 16:25] LABS: BASOPHILS # (AUTO) 0.02 x10^3/uL (0-0.3); BASOPHILS % (AUTO) 0 % (0-1); EOSINOPHILS # (AUTO) 0.05 x10^3/uL (0-0.8); EOSINOPHILS % (AUTO) 1 % (1-7); LYMPHOCYTES # (AUTO) 1.17 x10^3/uL (1-6.1); LYMPHOCYTES % (AUTO) 21 % (22-44); MD NO; MEAN CORPUSCULAR HEMOGLOBIN 29.6 pg (27.0-34.8); MEAN CORPUSCULAR HGB CONC 33.5 g/dL (32.4-35.8); MEAN CORPUSCULAR VOLUME 88.4 fL (80-100); MEAN PLATELET VOLUME 7.8 fL (7.4-10.4); MONOCYTES # (AUTO) 0.32 x10^3/uL (0-1.4); MONOCYTES % (AUTO) 6 % (2-9); NEUTROPHILS # (AUTO) 3.94 x10^3/uL (1.8-8.0); NEUTROPHILS % (AUTO) 72 % (42-75); PLATELET COUNT 244 x10^3/uL (130-400); RED BLOOD COUNT 4.74 x10^6/uL (3.82-5.3); RED CELL DISTRIBUTION WIDTH 12.8 % (9.6-15.2)
[2020-02-22 16:35] LABS: ALANINE AMINOTRANSFERASE 19 U/L (12-78); ALBUMIN 3.2 g/dL (3.4-5.0); ANION GAP 7 mmol/L (5-15); CALCIUM 8.5 mg/dL (8.5-10.1); CHLORIDE 108 mmol/L (98-107); CREATININE 0.81 mg/dL (0.55-1.02)
[2020-02-22 16:40] LABS: ALKALINE PHOSPHATASE 52 U/L (45-117); BILIRUBIN,TOTAL 0.7 mg/dL (0.2-1.0); TOTAL PROTEIN 6.7 g/dL (6.4-8.2)
[2020-02-22 16:40] LABS: MICROSCOPIC NOT IND
[2020-02-22] MEDS ORDERED: SODIUM CHLORIDE FLUSH 10ML SYR IVF ONE (17:00)
--- NOTE | 2020-02-22 17:18 | NUR ---
pt returned from imaging at this time. Call light in reach.
[2020-02-22] MEDS ORDERED: OMNIPAQUE 350 MG/ML, 100ML BOTTLE ONE (17:24)
[2020-02-22 17:31] VITALS: BP 116/66
== END 2020-02-22 18:45 | disposition home or self-care (01) ==
LOC: ED 18:32
DX: K29.00 Acute gastritis without bleeding (principal)
CPT/HCPCS: 36415; 74177; 80053; 81003; 83690; 84703; 85025; 99285; Q9967; 99284

== ENCOUNTER 2021-04-21 03:26 | Emergency (ER) | payer OTHER ==
[~2021-04-21] VITALS: Ht 165.1 cm; Wt 73.4 kg
--- NOTE | 2021-04-21 04:15 | NUR ---
this is a 20f that comes in for cp upon waking up late for work this am. pt a/o ambulatory spouse at bedside for support at this time. vss. erp to bedside for eval
--- NOTE | 2021-04-21 05:20 | NUR ---
PT RESTING ON GURNEY RESP EVEN AND UNLABORED NADN, VSS NO NEEDS AT THIS TIME.
[2021-04-21 05:35] VITALS: BP 98/54
--- NOTE | 2021-04-21 05:57 | NUR ---
Patient/Caregiver given discharge instructions and they have confirmed that they understand the instructions. Patient ambulatory with steady gait. NAD, all questions answered appropriately, denies additional needs at this time. No personal belongings left in room after discharge.
== END 2021-04-21 05:58 | disposition home or self-care (01) ==
LOC: ED 05:52
DX: R07.89 Other chest pain (principal); F43.0 Acute stress reaction; E03.9 Hypothyroidism, unspecified
CPT/HCPCS: 71045; 93005; 99283